=== PATIENT | male | born 1970 | race African-American/Black ===

== ENCOUNTER 2019-08-10 17:10 | Emergency (ER) | payer OTHER ==
[~2019-08-10] VITALS: Ht 175.3 cm; Wt 129.1 kg
[2019-08-10 18:01] LABS: BASOPHILS # (AUTO) 0.09 x10^3/uL (0-0.1); BASOPHILS % (AUTO) 1 % (0-1); EOSINOPHILS # (AUTO) 0.27 x10^3/uL (0-0.4); EOSINOPHILS % (AUTO) 4 % (1-7); LYMPHOCYTES # (AUTO) 1.95 x10^3/uL (1-3.4); LYMPHOCYTES % (AUTO) 25 % (22-44); MD NO; MEAN CORPUSCULAR HEMOGLOBIN 27.7 pg (27.5-34.5); MEAN CORPUSCULAR HGB CONC 32.1 g/dL (33.2-36.2); MEAN CORPUSCULAR VOLUME 86.2 fL (81-97); MEAN PLATELET VOLUME 9.9 fL (7.4-10.4); MONOCYTES # (AUTO) 0.48 x10^3/uL (0.2-0.8); MONOCYTES % (AUTO) 6 % (2-9); NEUTROPHILS # (AUTO) 4.98 x10^3/uL (1.8-6.8); NEUTROPHILS % (AUTO) 64 % (42-75); PLATELET COUNT 189 x10^3/uL (130-400); RED BLOOD COUNT 4.22 x10^6/uL (4.38-5.82); RED CELL DISTRIBUTION WIDTH 18.6 % (9.4-14.8)
[2019-08-10 18:07] LABS: INTERNATIONAL NORMALIZED RATIO 2.93 (0.93-1.1); PROTHROMBIN TIME 31.4 Seconds (9.6-11.5)
[2019-08-10 18:11] LABS: ANION GAP 6 mmol/L (5-15); CALCIUM 8.1 mg/dL (8.5-10.1); CHLORIDE 110 mmol/L (98-107)
[2019-08-10 18:16] LABS: ALANINE AMINOTRANSFERASE 18 U/L (12-78); ALKALINE PHOSPHATASE 73 U/L (45-117); BILIRUBIN,TOTAL 0.1 mg/dL (0.2-1.0); TOTAL PROTEIN 6.5 g/dL (6.4-8.2)
--- NOTE | 2019-08-10 18:32 | NUR ---
XRAY AND LABS COMPLETED AND AWAITING CT HEAD. CONTINUE TO MONITOR, NO DISTRESS.
--- NOTE | 2019-08-10 19:12 | NUR ---
REPORT OF PT FROM EPIFANIO HIGUERA AND ASSUMING CARE OF PT AT THIS TIME.
--- NOTE | 2019-08-10 20:01 | NUR ---
PT D/C WITH D/C SUMMARY. ALL QUESTIONS ANSWERED. PT OFFERED A TAXI VOUCHER TO HOMELESS SKILLED NURSING BUT INSTEAD REQUESTING TO GO [facility] HE STATES HE HAS A ROOM. TAXI VOUCHER PROVIDED AT THIS TIME. PT IV D/C WITH TIP INTACT. PT PROVIDED A REFERENCE SHEET OF PROVIDERS FOR F/U OP. PT AMBULATES TO REGISTRATION DESK WITH STEADY GAIT FOR D/C HOME. PT PROVIDED WITH CRACKERS AND JUICE PER REQUEST. PT VSS AND UPDATED IN EMR PRIOR TO D/C.
[2019-08-10 20:02] VITALS: BP 109/46
== END 2019-08-10 20:22 | disposition home or self-care (01) ==
LOC: ED 20:21
DX: E11.22 Type 2 diabetes mellitus with diabetic chronic kidney disease (principal); I13.0 Hypertensive heart and chronic kidney disease with heart failure and stage 1 through stage 4 chronic kidney disease, or unspecified chronic kidney disease; N18.9 Chronic kidney disease, unspecified; I50.9 Heart failure, unspecified; D68.9 Coagulation defect, unspecified; R94.31 Abnormal electrocardiogram [ECG] [EKG]; R07.89 Other chest pain; R55 Syncope and collapse; R06.02 Shortness of breath
CPT/HCPCS: 36415; 70450; 71045; 80053; 83880; 85025; 85610; 93005; 99285